=== PATIENT | female | born 1980 | race American Indian/Alaskan Native ===

== ENCOUNTER 2020-07-18 20:40 | Emergency (ER) | payer SELFPAY ==
[2020-07-18 21:02] VITALS: BP 134/76
[2020-07-18 21:24] LABS: Basophils # (Auto) 0.1 K/mm3 (0.0-0.1); Basophils % (Auto) 0.5 % (0.0-1.8); Eosinophils # (Auto) 0.1 K/mm3 (0.0-0.4); Eosinophils % (Auto) 1.1 % (0.0-4.3); Hematocrit 37.4 % (30.3-42.9); Hemoglobin 12.7 gm/dl (10.1-14.3); Lymphocytes # (Auto) 1.9 K/mm3 (1.2-5.4); Lymphocytes % (Auto) 19.3 % (13.4-35.0); Mean Corpuscular HGB Conc 34 % (30-34); Mean Corpuscular Volume 93 fl (79-97); Monocytes # (Auto) 0.5 K/mm3 (0.0-0.8); Monocytes % (Auto) 5.1 % (0.0-7.3); Platelet Count 334 K/mm3 (140-440); Red Blood Count 4.04 M/mm3 (3.65-5.03)
[2020-07-18 21:49] LABS: Alanine Aminotransferase 27 units/L (7-56); BUN/Creatinine Ratio 18; Blood Urea Nitrogen 16 mg/dL (7-17); Calcium 9.3 mg/dL (8.4-10.2); Hemolysis Index 25
[2020-07-18 22:31] LABS: Color,Urine Yellow (Yellow)
[2020-07-18 22:32] LABS: Bacteria,Urine 1+ /HPF (Negative); Bilirubin,Urine NEG (Negative); Blood,Urine NEG (Negative); Protein,Urine <15 mg/dL mg/dL (Negative); Urobilinogen,Urine < 2.0 mg/dL (<2.0)
[2020-07-18] MEDS ORDERED: ONDANSETRON 4 MG ODT TAB PO ONE (22:54)
[2020-07-18] MEDS ORDERED: ALUM-MAG HYDROXIDE-SIMETHICONE 200-200-20MG/5ML ORAL LIQD 30 ML PO ONE (23:00)
[2020-07-18] MEDS ORDERED: LIDOCAINE VISCOUS 2% 15 ML ORAL LIQD PO ONE (23:00)
--- NOTE | 2020-07-18 23:08 | Emergency Department Report ---
HPI - General Chief Complaint: Abdominal Pain Time Seen by Provider: 07/18/20 22:42 - HPI HPI: This is a 40-year-old -Mex[place] female presents to the emergency department with complaint of abdominal pain, headache, nausea without vomiting and dizziness that started earlier today while at work. The patient works at a long-term care facility. She says that she ate some food that was provided to the residents and staff and the symptoms began shortly afterwards. She said that she had a severe headache to the bilateral temples, as well as some dizziness. However, the patient denies any vision change, slurred speech, numbness or paresthesias, or any other neurological deficits. At the time of my examination the patient says that the headache is down to a 4 out of 10 in intensity. Patient also complained of severe abdominal pain earlier in the afternoon/evening that is mostly to the upper abdomen and epigastrium. At the time of my examination it is a 6 out of 10 in intensity. Patient did not have any vomiting but feels like there is something stuck in the middle of her upper abdomen. She denies any past medical history. She has not taken anything for symptoms prior to presentation. ED Past Medical Hx - Past Medical History Previous Medical History?: No - Surgical History Past Surgical History?: No - Social History Smoking Status: Never Smoker Substance Use Type: None - Medications Home Medications: Home Medications Medication Instructions Recorded Confirmed Last Taken Type Famotidine [Pepcid] 20 mg PO BID #20 tablet 07/19/20 Unknown Rx ED Review of Systems ROS: Stated complaint: HEADACHE ABD PAIN Other details as noted in HPI Comment: All other systems reviewed and negative Constitutional: denies: chills, fever Eyes: denies: eye pain, vision change ENT: denies: ear pain, throat pain Respiratory: denies: cough, shortness of breath Cardiovascular: denies: chest pain, palpitations Gastrointestinal: abdominal pain, nausea. denies: vomiting, diarrhea, constipation Genitourinary: denies: dysuria, discharge Musculoskeletal: denies: back pain, arthralgia Skin: denies: rash, lesions Neurological: headache. denies: weakness, numbness, paresthesias Physical Exam - Physical Exam Vital Signs: Vital Signs 07/18/20 21:02 Temperature 97.5 F L Pulse Rate 70 Respiratory 18 Rate Blood Pressure 134/76 [Right] O2 Sat by Pulse 99 Oximetry Physical Exam: GENERAL: The patient is well-developed well-nourished. HENT: Normocephalic. Atraumatic. Patient has moist mucous membranes. EYES: Extraocular motions are intact. No nystagmus. NECK: Supple. Trachea is midline. CHEST/LUNGS: Clear to auscultation. There is no respiratory distress noted. HEART/CARDIOVASCULAR: Regular. There is no tachycardia. There is no murmur. ABDOMEN: Abdomen is soft. There is upper abdominal tenderness to palpation. No guarding. Patient has normal bowel sounds. There is no abdominal distention. SKIN: Skin is warm and dry. NEURO: The patient is awake, alert, and oriented. The patient is cooperative. The patient has no focal neurologic deficits. Normal speech. Cranial nerves II through XII grossly intact. No facial asymmetry. No pronator drift. MUSCULOSKELETAL: There is no tenderness or deformity. There is no limitation range of motion. ED Course Vital Signs 07/18/20 21:02 Temperature 97.5 F L Pulse Rate 70 Respiratory 18 Rate Blood Pressure 134/76 [Right] O2 Sat by Pulse 99 Oximetry - Reevaluation(s) Reevaluation #1: 07/19/20 01:09 Lab Results 07/18/20 07/18/20 07/18/20 Range/Units 21:09 21:09 21:09 WBC 9.7 (4.5-11.0) K/mm3 RBC 4.04 (3.65-5.03) M/mm3 Hgb 12.7 (10.1-14.3) gm/dl Hct 37.4 (30.3-42.9) % MCV 93 (79-97) fl MCH 32 (28-32) pg MCHC 34 (30-34) % RDW 14.0 (13.2-15.2) % Plt Count 334 (140-440) K/mm3 Lymph % (Auto) 19.3 (13.4-35.0) % [place] % (Auto) 5.1 (0.0-7.3) % Eos % (Auto) 1.1 (0.0-4.3) % Baso % (Auto) 0.5 (0.0-1.8) % Lymph # (Auto) 1.9 (1.2-5.4) K/mm3 [place] # (Auto) 0.5 (0.0-0.8) K/mm3 Eos # (Auto) 0.1 (0.0-0.4) K/mm3 Baso # (Auto) 0.1 (0.0-0.1) K/mm3 Seg Neutrophils % 74.0 H (40.0-70.0) % Seg Neutrophils # 7.2 (1.8-7.7) K/mm3 Sodium 140 (137-145) mmol/L Potassium 4.0 (3.6-5.0) mmol/L Chloride 102.7 (98-107) mmol/L Carbon Dioxide 26 (22-30) mmol/L Anion Gap 15 mmol/L BUN 16 (7-17) mg/dL Creatinine 0.9 (0.6-1.2) mg/dL Estimated GFR > 60 ml/min BUN/Creatinine Ratio 18 % Glucose 88 (65-100) mg/dL Calcium 9.3 (8.4-10.2) mg/dL Total Bilirubin < 0.20 (0.1-1.2) mg/dL AST 24 (5-40) units/L ALT 27 (7-56) units/L Alkaline Phosphatase 99 (35-129) units/L Total Protein 7.3 (6.3-8.2) g/dL Albumin 4.0 (3.9-5) g/dL Albumin/Globulin Ratio 1.2 % Lipase (13-60) units/L HCG, Qual Negative (Negative) Urine Color (Yellow) Urine Turbidity (Clear) Urine pH (5.0-7.0) Ur Specific [place] (1.003-1.030) Urine Protein (Negative) mg/dL Urine Glucose (UA) (Negative) mg/dL Urine Ketones (Negative) mg/dL Urine Blood (Negative) Urine Nitrite (Negative) Urine Bilirubin (Negative) Urine Urobilinogen (<2.0) mg/dL Ur Leukocyte Esterase (Negative) Urine WBC (Auto) (0.0-6.0) /HPF Urine RBC (Auto) (0.0-6.0) /HPF U Epithel Cells (Auto) (0-13.0) /HPF Urine Bacteria (Auto) (Negative) /HPF 07/18/20 07/18/20 Range/Units 21:09 Unknown WBC (4.5-11.0) K/mm3 RBC (3.65-5.03) M/mm3 Hgb (10.1-14.3) gm/dl Hct (30.3-42.9) % MCV (79-97) fl MCH (28-32) pg MCHC (30-34) % RDW (13.2-15.2) % Plt Count (140-440) K/mm3 Lymph % (Auto) (13.4-35.0) % [place] % (Auto) (0.0-7.3) % Eos % (Auto) (0.0-4.3) % Baso % (Auto) (0.0-1.8) % Lymph # (Auto) (1.2-5.4) K/mm3 [place] # (Auto) (0.0-0.8) K/mm3 Eos # (Auto) (0.0-0.4) K/mm3 Baso # (Auto) (0.0-0.1) K/mm3 Seg Neutrophils % (40.0-70.0) % Seg Neutrophils # (1.8-7.7) K/mm3 Sodium (137-145) mmol/L Potassium (3.6-5.0) mmol/L Chloride (98-107) mmol/L Carbon Dioxide (22-30) mmol/L Anion Gap mmol/L BUN (7-17) mg/dL Creatinine (0.6-1.2) mg/dL Estimated GFR ml/min BUN/Creatinine Ratio % Glucose (65-100) mg/dL Calcium (8.4-10.2) mg/dL Total Bilirubin (0.1-1.2) mg/dL AST (5-40) units/L ALT (7-56) units/L Alkaline Phosphatase (35-129) units/L Total Protein (6.3-8.2) g/dL Albumin (3.9-5) g/dL Albumin/Globulin Ratio % Lipase 17 (13-60) units/L HCG, Qual (Negative) Urine Color Yellow (Yellow) Urine Turbidity Clear (Clear) Urine pH 6.0 (5.0-7.0) Ur Specific [place] 1.017 (1.003-1.030) Urine Protein <15 mg/dl (Negative) mg/dL Urine Glucose (UA) Neg (Negative) mg/dL Urine Ketones Neg (Negative) mg/dL Urine Blood Neg (Negative) Urine Nitrite Neg (Negative) Urine Bilirubin Neg (Negative) Urine Urobilinogen < 2.0 (<2.0) mg/dL Ur Leukocyte Esterase Neg (Negative) Urine WBC (Auto) 4.0 (0.0-6.0) /HPF Urine RBC (Auto) 1.0 (0.0-6.0) /HPF U Epithel Cells (Auto) 4.0 (0-13.0) /HPF Urine Bacteria (Auto) 1+ (Negative) /HPF Reevaluation #3: 07/19/20 01:09 Vital Signs 07/18/20 21:02 Temperature 97.5 F L Pulse Rate 70 Respiratory 18 Rate Blood Pressure 134/76 [Right] O2 Sat by Pulse 99 Oximetry ED Medical Decision Making - Lab Data Result diagrams: 07/18/20 21:09 07/18/20 21:09 - Radiology Data Radiology results: image reviewed interpreted by me: Abdominal x-ray shows nonspecific nonobstructive bowel gas - Medical Decision Making This patient presents with the complaint of a bitemporal headache and upper abdo ruthy pain that has been going on since earlier this evening while the patient was at work. Both of her complaints have improved from their initial presentation without any medication or treatments attempted. On examination the patient does not have any focal, motor or sensory deficits and her cranial nerves are intact. There is some reproducible upper abdominal tenderness to palpation. However the abdomen is soft, nondistended and nontoxic in appearance. An abdominal x-ray was completed that did not show any acute process. The patient's labs have been unremarkable including CBC, CMP, lipase, urinalysis, and the patient is not . The patient was given a Zofran ODT for her nausea. She was given a GI cocktail including Maalox and viscous lidocaine. Upon reevaluation, the patient is feeling greatly improved. For these reasons the patient safe for discharge home at this time. She will be placed on Pepcid for some suspected GERD. She has been instructed to follow-up with her primary care physician in the next few days, and to return to the emergency department with any worsening of her symptoms or with any acute distress. Vital signs have been reassuring throughout her ED course including being afebrile. Critical Care Time: No Critical care attestation.: If time is entered above; I have spent that time in minutes in the direct care of this critically ill patient, excluding procedure time. ED Disposition Clinical Impression: Abdominal pain Qualifiers: Abdominal location: upper abdomen, unspecified Qualified Code(s): R10.10 - Upper abdominal pain, unspecified GERD (gastroesophageal reflux disease) Qualifiers: Esophagitis presence: esophagitis presence not specified Qualified Code(s): K21.9 - Gastro-esophageal reflux disease without esophagitis Headache Qualifiers: Headache type: unspecified Headache chronicity pattern: acute headache Intractability: not intractable Qualified Code(s): R51.9 - Headache, unspecified Disposition: DC- TO HOME OR SELFCARE Is pt being admited?: No Condition: Stable Instructions: Abdominal Pain, Adult, General Headache Without Cause, Food Choices for Gastroesophageal Reflux Disease, Adult, Gastroesophageal Reflux Disease, Adult, Abdominal Pain (ED) Additional Instructions: Please follow-up with a primary care physician in the next few days. Return to the emergency department with any worsening of your symptoms, new or concerning symptoms not addressed during this current emergency department visit, or with any acute distress. Prescriptions: Famotidine [Pepcid] 20 mg PO BID #20 tablet Referrals: BETTINA SALDIVAR [Other] - 3-5 Days Forms: Work/School Release Form(ED) Time of Disposition: 00:15
--- NOTE | 2020-07-18 23:41 | XRay Report ---
ABDOMEN 2 VIEW(S) INDICATION / CLINICAL INFORMATION: Abd pain. COMPARISON: None available. FINDINGS: TUBES / LINES: None. BOWEL GAS PATTERN: No significant abnormality. FREE AIR / EXTRALUMINAL GAS: None seen. ADDITIONAL FINDINGS: Tubal ligation and cholecystectomy clips noted. IMPRESSION: 1. No significant abnormality. Signer Name: Carrington Charlton MD Signed: 07/18/2020 11:36 PM Workstation Name: [id number]
== END 2020-07-19 00:45 | disposition home or self-care (01) ==
LOC: ED 20:40
DX: K21.9 Gastro-esophageal reflux disease without esophagitis (principal); R10.10 Upper abdominal pain, unspecified; R51.9 Headache, unspecified; Z79.899 Other long term (current) drug therapy
CPT/HCPCS: 36415; 74019; 80053; 81001; 83690; 84703; 85025; Q0162